=== PATIENT | male | born 2000 | race Caucasian/White ===

== ENCOUNTER 2024-05-14 02:48 | Emergency (ER) | payer BC, SELFPAY ==
[2024-05-14] MEDS ORDERED: diphenhydrAMINE 25 MG CAP ONE (03:50)
[2024-05-14] MEDS ORDERED: Ondansetron ODT 4 MG TAB ONE (03:50)
== END 2024-05-14 04:27 | disposition home or self-care (01) ==
LOC: CSHERS 02:48
DX: R06.00 Dyspnea, unspecified (principal)
CPT/HCPCS: 71046; 93005; Q0162